=== PATIENT | male | born 1960 | race African-American/Black ===

== ENCOUNTER 2023-05-30 05:39 | Emergency (ER) | payer MEDICARE, MEDICAID, SELFPAY ==
[2023-05-30 05:44] VITALS: BP 142/76; PULSE 92; RESP 17; TEMP 36.6; O2SAT 96; BMI 31.5
--- NOTE | 2023-05-30 06:48 | PC.NURSE ---
pt a&o, change into hospital attire, 05/08 pain, reports having this in the past ,no drainage at this time. Reported off to MARINA Cole
[2023-05-30 07:02] VITALS: BP 133/75; PULSE 84; RESP 18; TEMP 36.8; O2SAT 95
--- NOTE | 2023-05-30 07:15 | ED.SKABFB ---
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 complaint: abscess/boil Related Data Previous Rx's Medication Instructions Recorded doxycycline monohydrate 100 mg 100 mg PO BID #14 caps 05/30/23 capsule Allergies Allergy/AdvReac Type Severity Reaction Status Date / Time No Known Allergies Allergy Unverified 05/15/20 16:19 Review of Systems Review of Systems: Yes all other systems are reviewed and are negative Neurologic: Denies Sensory deficit (Neuro) [facility] Social History Social History Smoked in Last 30 Days: No Use of substances other than those prescribed or required for medical reasons: No Any prior treatment program specific to substance use: No Advance Directives: No Advance Directives Information Provided: No Physical Exam Vital Signs: Vital Signs: Last Vital Signs Temp 98.2 F 05/30/23 07:02 Pulse 84 05/30/23 07:02 Resp 18 05/30/23 07:02 BP 133/75 05/30/23 07:02 Pulse Ox 95 05/30/23 07:02 O2 Del Method Room Air 05/30/23 07:02 BMI result Body Mass Index 31.5 Const: General: healthy appearing Nutritional Appearance: average body habitus Orientation/consciousness: oriented to person and patient oriented x3 Limitations: no limitations HEENT: Head: Yes normal to inspection Ears: external ears normal General nose exam: Normal external nose present Mouth: Normal oral and palatal mucosa present and oropharynx normal Throat: Yes posterior oropharynx normal Eyes: General: appearance normal, both eyes and all related structures Neck: Other: supple Neck: Yes normal visual inspection Chest: Chest palpation & inspection: normal inspection of the chest Resp: Auscultation: clear to auscultation bilaterally Cardio: Jugular venous distension: no JVD Rate: regular rate Rhythm: regular rhythm Heart sounds: S1 normal heart sound present and S2 normal heart sound present GI: Inspection: Yes normal to inspection Palpation (GI): Soft to palpation, nontender and No hepatosplenomegaly present Auscultation: normal bowel sounds : General: Yes no CVA tenderness Back/Spine/Pelvis: Back: no CVA tenderness Skin: Other: left groin with firm swelling that is draining pus Neuro: General: oriented to person and patient oriented x3 Cranial nerves: Yes CN's II-XII intact bilaterally Motor exam (neuro): 5/5 motor strength present throughout Sensory Exam: No Sensory deficit (Neuro) Extrem: General: Yes normal to inspection Psych: Appearance: grossly normal Course Reevaluation(s) Reevaluation #1: packing placed, started doxy due to history of Mrsa Time: 07:53 Medications Administered Discontinued Medications Generic Name Dose Route Start Last Admin Trade Name Freq PRN Reason Stop Dose Admin Doxycycline Monohydrate 100 mg 05/30/23 07:36 05/30/23 07:45 Doxycycline Monohydrate 100 Mg Capsule PO 05/30/23 07:37 100 mg ONCE ONE Administration Lidocaine HCl 10 ml 05/30/23 07:45 05/30/23 07:45 Lidocaine Hcl 1 % Mpf 30 Ml Vial SUBCUT 05/30/23 07:46 10 ml ONCE ONE Administration Medical Decision Making Differential Diagnosis Differential Diagnoses: The differential diagnosis associated with the presentation includes (cellulitis, abscess, MRSA was all considered) Admission/Observation Consideration of admission/observation: Escalation of care including admission/observation considered (upon arrival patient considered for admission) Lab Data Labs: Lab Results 05/30/23 Range/Units 07:07 COVID-19 ([facility]) Negative (Negative) COVID-19 Clin Com See Note Tests considered The following testing was considered but not selected: Ultrasound considered but area was already draining Chronic Conditions Patient?s care impacted by: Other (MRSA) Procedures Procedure Narrative Procedure Narrative: Patient prepped and draped in sterile fashion. !% epi with lidocaine used for anesthesia. 15 blade used, pus removed, packing placed. Patient tolerated procedure well Discharge Plan Discharge Clinical Impression: Abscess of skin or subcutaneous tissue Patient Disposition: Home, Self-Care Instructions: Abscess (ED), Abscess Incision and Drainage (DC) Additional Instructions: packing removal in 2 days, warm compresses to wound 4 times a day Prescriptions: New doxycycline monohydrate 100 mg capsule 100 mg PO BID Qty: 14 0RF Referrals: Jennifer Reid MD [Primary Care Provider] - 1 week
[2023-05-30 07:29] LABS: COVID-19 Test Negative (Negative); IDNOW Serial# 55D5AD1C
[2023-05-30] MEDS: Doxycycline Monohydrate 100 MG CAPSULE PO (07:45)
[2023-05-30] MEDS: Lidocaine HCl 1 % MPF 30 ML VIAL 10 ML SUBCUT (07:45)
--- NOTE | 2023-05-30 08:05 | PC.NURSE ---
Discharge plan reviewed with patient who verbalized understanding
== END 2023-05-30 08:06 | disposition home or self-care (01) ==
PROVIDERS: Emergency Provider Emergency Medicine; PCP Internal Medicine
DX: L02.416 Cutaneous abscess of left lower limb (principal); Z20.822 Contact with and (suspected) exposure to COVID-19; Z20.828 Contact with and (suspected) exposure to other viral communicable diseases
CPT/HCPCS: 10060; 87635; 99284

== ENCOUNTER 2023-07-21 01:50 | Emergency (ER) | payer OTHER, MEDICARE, MEDICAID, SELFPAY ==
[2023-07-21 01:57] VITALS: BP 139/80; PULSE 96; RESP 14; TEMP 36.9; O2SAT 98
[2023-07-21 02:04] VITALS: BP 145/86; PULSE 98; O2SAT 96; BMI 33.0
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
[2023-07-21] MEDS: Fluorescein Sodium STRIP 1 STRIP EYE-LEFT (02:24)
== END 2023-07-21 02:44 | disposition home or self-care (01) ==
PROVIDERS: Emergency Provider Internal Medicine
DX: T65.891A Toxic effect of other specified substances, accidental (unintentional), initial encounter (principal); T26.52XA Corrosion of left eyelid and periocular area, initial encounter; Y93.G3 Activity, cooking and baking; Y92.9 Unspecified place or not applicable; Y99.9 Unspecified external cause status
CPT/HCPCS: 99283; 99284